=== PATIENT | female | born 1995 | race Caucasian/White ===

== ENCOUNTER 2016-08-04 09:21 | Emergency (ER) | payer BC ==
[~2016-08-04] VITALS: Ht 162.6 cm; Wt 54.4 kg
[2016-08-04 10:22] VITALS: BP 139/73
--- NOTE | 2016-08-04 10:45 | PHYS DOC ---
Past Medical History Past Medical History: No Pertinent History Past Surgical History: Other Additional Past Surgical Histo: L ANKLE SX Alcohol Use: Occasionally Drug Use: None Adult General Chief Complaint Chief Complaint: OTHER COMPLAINTS [facility] HPI Patient is a 20 year old female presents to the emergency department stating that she was out over the weekend and on Thursday night she states that she was on her menstrual cycle and had a tampon in place when she had sexual intercourse. She denies taking the tampon out and does not recall the person she had sexual intercourse with taking it out either. Patient states that she has been unable to obtain the tampon. She states that she is unable to fill the tampon as well. She denies any odors or discharge coming from the site area. Review of Systems Review of Systems Constitutional: Denies fever or chills [] Eyes: Denies change in visual acuity, redness, or eye pain [] HENT: Denies nasal congestion or sore throat [] Respiratory: Denies cough or shortness of breath [] Cardiovascular: No additional information not addressed in HPI [] GI: Denies abdominal pain, nausea, vomiting, bloody stools or diarrhea [] : Denies dysuria or hematuria. Complaint of tampon retained in the vaginal area. Musculoskeletal: Denies back pain or joint pain [] Integument: Denies rash or skin lesions [] Neurologic: Denies headache, focal weakness or sensory changes [] Allergies Allergies Allergies Coded Allergies Type Severity Reaction Last Updated Verified Penicillins Allergy Unknown 08/04/16 Yes amoxicillin Allergy Unknown 08/04/16 Yes Physical Exam Physical Exam Constitutional: Well developed, well nourished, no acute distress, non-toxic appearance. [] HENT: Normocephalic, atraumatic, bilateral external ears normal, oropharynx moist, no oral exudates, nose normal. [] Eyes: PERRLA, EOMI, conjunctiva normal, no discharge. [] Neck: Normal range of motion, no tenderness, supple, no stridor. [] Cardiovascular:Heart rate regular rhythm, no murmur [] Lungs & Thorax: Bilateral breath sounds clear to auscultation [] Abdomen: Bowel sounds hypoactive, soft, no tenderness, no masses, no pulsatile masses. [] Skin: Warm, dry, no erythema, no rash. [] Back: No tenderness Extremities: No tenderness, no cyanosis, no clubbing, ROM intact, no edema. [] Neurologic: Alert and oriented X 3, normal motor function, normal sensory function, no focal deficits noted. [] Psychologic: Affect normal, judgement normal, mood normal. [] Vaginal exam: Speculum exam with no foreign body noted. Cultures obtained. Manual exam no adnexal or CMT noted. Patient was noted to have some vaginal bloody discharge. Current Patient Data Vital Signs Vital Signs Date Time Temp Pulse Resp B/P Pulse Ox O2 Delivery O2 Flow Rate FiO2 08/04/16 10:22 97.8 87 18 99 Room Air 97.8 Lab Values Microbiology 08/04/16 Wet Prep - Final, Complete EKG EKG [] Radiology/Procedures Radiology/Procedures [] Course & Med Decision Making Course & Med Decision Making Pertinent Labs and Imaging studies reviewed. (See chart for details) Wet prep was positive for bacterial vaginosis. Patient will be placed on Flagyl. Recommended avoiding alcoholic beverages while on the Flagyl as this will create abdominal pain and discomfort. Patient will be discharged home in stable condition signs symptoms to return back to emergency department as been provided. Patient agrees with discharge instructions treatment regimens and follow-up recommendations. [] Dragon Disclaimer Dragon Disclaimer This electronic medical record was generated, in whole or in part, using a voice recognition dictation system. Departure Departure Impression: Primary Impression: Bacterial vaginosis Disposition: HOME, SELF-CARE Condition: STABLE Referrals: NO PCP (PCP) Patient Instructions: Bacterial Vaginosis, [id number] Additional Instructions: Activity as tolerated. Medication as prescribed. Avoid drinking alcohol with this medication as it will cause an upset stomach and abdominal pain. Follow-up through primary care physician or [facility] in the next week. Return back to emergency department for signs and symptoms of become worse. Scripts Metronidazole (Flagyl)500 Mg Tablet1 Tab PO BID #14 TAB Prov:XUAN BROOKS NP 08/04/16 XUAN BROOKS NP Aug 04, 2016 10:45
[2016-08-04] MEDS ORDERED: METR500T PO (11:14)
== END 2016-08-04 11:56 | disposition home or self-care (01) ==
LOC: ER 09:21
DX: N76.0 Acute vaginitis (principal); B96.89 Other specified bacterial agents as the cause of diseases classified elsewhere; Z88.0 Allergy status to penicillin
CPT/HCPCS: 87491; 87591; 99284; Q0111